=== PATIENT | female | born 1950 | race Caucasian/White ===

== ENCOUNTER 2017-06-14 06:33 | Day surgery (SDC) | payer OTHER, BC ==
[2017-06-07 17:21] VITALS: BMI 28.8
[2017-06-14] MEDS: TROPICAMIDE 1% OPHTH SOLN 15 ML BOTTLE ONE ×3 (07:10→07:20)
[2017-06-14] MEDS: PHENYLEPHRINE 2.5% OPHTH SOLN 15 ML BOTTLE ONE ×3 (07:10→07:20)
[2017-06-14] MEDS: CIPROFLOXACIN 0.3% EYE DROPS 5 ML BOTTLE ONE ×3 (07:10→07:20)
[2017-06-14] MEDS: CYCLOPENTOLATE 2% OPHTH SOLN 2 ML BOTTLE ONE ×3 (07:10→07:20)
[2017-06-14] MEDS ORDERED: NEO/POLYMYX B SULF/DEXAMETH OPHTHALMIC OINTMENT 3.5 GM ONE (07:11)
[2017-06-14] MEDS ORDERED: BSS (NA/CA/MG/K) BALANCED SALT SOLUTION OPHTH SOLN 15 ML BOTTLE ONE (07:11)
[2017-06-14] MEDS ORDERED: LIDOCAINE 1% P/F 10 MG/ML VIAL ONE (07:11)
[2017-06-14] MEDS ORDERED: TETRACAINE 0.5% OPHTH SOLN 2 ML BOTTLE ONE (07:11)
[2017-06-14] MEDS ORDERED: CARBACHOL 0.01% INTRA-OCULAR 1.5 ML VIAL ONE (07:12)
[2017-06-14] MEDS ORDERED: NEO/POLYMYX B SULF/DEXAMETH OPHTHALMIC 5ML BOTTLE ONE (07:12)
[2017-06-14] MEDS ORDERED: MIDAZOLAM HCL 2 MG/2 ML SINGLE DOSE VIAL ONE ×2 (07:49→07:56)
[2017-06-14 08:26] VITALS: TEMP 98
[2017-06-14 08:46] VITALS: BP 127/61; PULSE 62
--- NOTE | 2017-06-14 16:08 | OP ---
DATE OF OPERATION: 06/14/2017 OPERATIVE PROCEDURE: Lens Phacoemulsification with Posterior Chamber Intraocular Lens Placement Right Eye PREOPERATIVE DIAGNOSIS: Visually Significant Cataract of Right Eye POSTOPERATIVE DIAGNOSIS: Visually Significant Cataract of Right Eye SURGEON: Luis Grewal M.D. ANESTHESIA: MAC ANESTHESIOLOGIST: PROCEDURE: The patient was brought to the operating room and placed under monitored anesthesia care by Anesthesia. A drop of Tetracaine was then placed over the right eye. The patient was then prepped and draped in the usual sterile manner. A speculum was then placed over the right eye. The eye was then well irrigated with copious amounts of BSS (balanced salt solution). The operating microscope was then moved into position. A paracentesis was performed using a 15 degree blade. At this point 0.5 mL of 1% preservative-free lidocaine was injected into the anterior chamber. Amvisc plus was then injected into the anterior chamber. A clear corneal incision was then formed using a 2.2 mm keratome. A capsulorrhexis was then performed in a continuous circular fashion beginning with a cystotome, completed with an Utratas forceps. Hydrodissection was then performed using BSS on a cannula. The phaco probe was then introduced through the corneal wound and the cataract was removed using the phaco chop technique. Approximately 3 seconds of absolute phaco time was used. The remaining cortex was then removed using irrigation and aspiration with an I/A probe. The capsule was then filled with regular Amvisc and the capsule was noted to be intact. A previously selected foldable posterior chamber intraocular lens was then injected into the capsule through the corneal wound using a lens injector. It was then dialed into position using a Sinskey hook. The Amvisc was then removed using irrigation and aspiration. Miostat was then injected through the paracentesis to constrict the pupil. The paracentesis and corneal wound were then hydrated and noted to be water tight. A drop of Maxitrol was then placed over the eye. The speculum was removed and clear shield was taped over the eye. The patient tolerated the procedure well and there were no surgical complications. The patient was asked to follow up in my office the next day. LUIS GREWAL M.D. ROXANN/[id number]
== END 2017-06-14 08:50 | disposition home or self-care (01) ==
LOC: FASU 06:33
PROVIDERS: ATTEND Ophthalmology
PROC: 08RJ3JZ Replacement of Right Lens with Synthetic Substitute, Percutaneous Approach (ICD-10-PCS; principal; 2017-06-14 07:56)
DX: H26.8 Other specified cataract (principal)

== ENCOUNTER 2017-07-19 07:21 | Day surgery (SDC) | payer OTHER, BC ==
[2017-07-07 13:26] VITALS: BMI 28.8
[2017-07-19] MEDS ORDERED: BSS (NA/CA/MG/K) BALANCED SALT SOLUTION OPHTH SOLN 15 ML BOTTLE ONE (07:23)
[2017-07-19] MEDS ORDERED: CARBACHOL 0.01% INTRA-OCULAR 1.5 ML VIAL ONE (07:23)
[2017-07-19] MEDS ORDERED: LIDOCAINE 1% P/F 10 MG/ML VIAL ONE (07:23)
[2017-07-19] MEDS: CIPROFLOXACIN 0.3% EYE DROPS 5 ML BOTTLE ONE ×3 (07:50→08:00)
[2017-07-19] MEDS: CYCLOPENTOLATE 2% OPHTH SOLN 2 ML BOTTLE ONE ×3 (07:50→08:00)
[2017-07-19] MEDS: PHENYLEPHRINE 2.5% OPHTH SOLN 15 ML BOTTLE ONE ×3 (07:50→08:00)
[2017-07-19] MEDS: TROPICAMIDE 1% OPHTH SOLN 15 ML BOTTLE ONE ×3 (07:50→08:00)
[2017-07-19] MEDS ORDERED: MIDAZOLAM HCL 2 MG/2 ML SINGLE DOSE VIAL ONE (09:09)
[2017-07-19 09:59] VITALS: TEMP 97.7
[2017-07-19 10:17] VITALS: BP 121/63; PULSE 64
--- NOTE | 2017-07-19 13:30 | OP ---
DATE OF OPERATION: 07/19/2017 OPERATIVE PROCEDURE: Lens Phacoemulsification with Posterior Chamber Intraocular Lens Placement Left Eye PREOPERATIVE DIAGNOSIS: Visually Significant Cataract of Left Eye POSTOPERATIVE DIAGNOSIS: Visually Significant Cataract of Left Eye SURGEON: Luis Grewal M.D. ANESTHESIA: MAC ANESTHESIOLOGIST: PROCEDURE: The patient was brought to the operating room and placed under monitored anesthesia care by Anesthesia. A drop of Tetracaine was then placed over the left eye. The patient was then prepped and draped in the usual sterile manner. A speculum was then placed over the left eye. The eye was then well irrigated with copious amounts of BSS (balanced salt solution). The operating microscope was then moved into position. A paracentesis was performed using a 15 degree blade. At this point 0.5 mL of 1% preservative-free lidocaine was injected into the anterior chamber. Amvisc plus was then injected into the anterior chamber. A clear corneal incision was then formed using a 2.2 mm keratome. A capsulorrhexis was then performed in a continuous circular fashion beginning with a cystotome, completed with an Utratas forceps. Hydrodissection was then performed using BSS on a cannula. The phaco probe was then introduced through the corneal wound and the cataract was removed using the phaco chop technique. Approximately 3 seconds of absolute phaco time was used. The remaining cortex was then removed using irrigation and aspiration with an I/A probe. The capsule was then filled with regular Amvisc and the capsule was noted to be intact. A previously selected foldable posterior chamber intraocular lens was then injected into the capsule through the corneal wound using a lens injector. It was then dialed into position using a Sinskey hook. The Amvisc was then removed using irrigation and aspiration. Miostat was then injected through the paracentesis to constrict the pupil. The paracentesis and corneal wound were then hydrated and noted to be water tight. A drop of Maxitrol was then placed over the eye. The speculum was removed and clear shield was taped over the eye. The patient tolerated the procedure well and there were no surgical complications. The patient was asked to follow up in my office the next day. LUIS GREWAL M.D. ROXANN/[id number]
== END 2017-07-19 10:35 | disposition home or self-care (01) ==
LOC: FASU 07:21
PROVIDERS: ATTEND Ophthalmology
PROC: 08RK3JZ Replacement of Left Lens with Synthetic Substitute, Percutaneous Approach (ICD-10-PCS; principal; 2017-07-19 09:31)
DX: H26.8 Other specified cataract (principal)
CPT/HCPCS: 82962

== ENCOUNTER → 2018-12-28 | Day surgery (SDC) | payer OTHER, BC ==
[2018-12-27 16:22] VITALS: BMI 29.9
[2018-12-28 11:39] VITALS: TEMP 97.8
[2018-12-28 12:21] VITALS: BP 112/63; PULSE 59
--- NOTE | 2018-12-31 17:12 | PATH ---
Surgical Pathology Report Patient Name: ANAYA LUNA [facility]. Rec. #: [id number] /Age/Gender: 1950 (Age: 68) / F Account: [id number] Location: ASU-ENDOSCOPY Taken: 12/28/2018 Received: 12/28/2018 Reported: 12/31/2018 Physicians: Ronen Loo M.D. Specimen(s) Received A: RIGHT COLON POLYP B: BX SIGMOID ANASTOMOSIS C: BX RECTUM Clinical History Proctitis, abdominal pain, rule out Colitis Postoperative diagnosis: Diverticulosis, proctitis, right colon polyp, patent sigmoid anastomosis Final Diagnosis A. RIGHT COLON POLYP, BIOPSY: POLYPOID COLONIC MUCOSA WITH FOCAL SURFACE HYPERPLASTIC CHANGE AND REACTIVE LYMPHOID AGGREGATES IN THE LAMINA PROPRIA. B. SIGMOID ANASTOMOSIS, BIOPSY: FRAGMENTS OF COLONIC MUCOSA WITH FOCAL REACTIVE LYMPHOID AGGREGATE. C. PROCTITIS, BIOPSY: COLONIC MUCOSA WITH ACTIVE CHRONIC INFLAMMATION, ACUTE CRYPTITIS, ARCHITECTURAL DISTORTION, AND REACTIVE LYMPHOID FOLLICLES. SEE COMMENT. Comment: There is no dysplasia, granuloma, parasite or viral inclusions. The above histologic features are consistent with active chronic idiopathic inflammatory bowel disease. This may also be seen in chronic enteric infections, drug reactions, and parasitic infections. Clinical correlation recommended. Electronically Signed Stefania Snell M.D. Gross Description A. Received in formalin, labeled "biopsy right colon polyp" are 2 enamorado, irregular portions of soft tissue averaging 0.4 cm. in greatest dimension. The specimens are submitted in toto in one cassette. B. Received in formalin, labeled "biopsy sigmoid anastomosis" are 4 enamorado, irregular portions of soft tissue averaging 0.3 cm. in greatest dimension. The specimens are submitted in toto in one cassette. C. Received in formalin, labeled "biopsy proctitis" are 2 enamorado, irregular portions of soft tissue measuring 0.2 and 0.3 cm. in greatest dimension. The specimens are submitted in toto in one cassette. 12/28/201812/28/2018
== END | disposition home or self-care (01) ==
LOC: JASU-ENDO 08:57
PROVIDERS: ATTEND Internal Medicine Gastroenterology
PROC: 0DBP8ZX Excision of Rectum, Via Natural or Artificial Opening Endoscopic, Diagnostic (ICD-10-PCS; 2018-12-28)
PROC: 0DBK8ZX Excision of Ascending Colon, Via Natural or Artificial Opening Endoscopic, Diagnostic (ICD-10-PCS; principal; 2018-12-28 10:15)
DX: D12.2 Benign neoplasm of ascending colon (principal); K57.30 Diverticulosis of large intestine without perforation or abscess without bleeding; K64.8 Other hemorrhoids; K62.89 Other specified diseases of anus and rectum; E11.9 Type 2 diabetes mellitus without complications; K21.9 Gastro-esophageal reflux disease without esophagitis; E66.9 Obesity, unspecified; J44.9 Chronic obstructive pulmonary disease, unspecified; Z71.3 Dietary counseling and surveillance; Z79.84 Long term (current) use of oral hypoglycemic drugs; Z98.0 Intestinal bypass and anastomosis status
CPT/HCPCS: 88305-TC

== ENCOUNTER 2019-06-12 14:47 | Emergency (ER) | payer OTHER, BC ==
[2019-06-12 15:00] VITALS: BP 145/66; PULSE 56; TEMP 97.5; BMI 29.1
--- NOTE | 2019-06-12 15:00 | PDOC ---
Rapid Medical Evaluation Time Seen by Provider: 06/12/19 14:58 Medical Evaluation: Allergies Allergy/AdvReac Type Severity Reaction Status Date / Time No Known Drug Allergies Allergy Verified 07/07/17 13:36 06/12/19 14:58 Patient c/o: teeth psin to left side and now left ear, mild headache, no fever or dizziness Patient on brief exam: vss, no acute distress Patient ordered for: none Patient to proceed to the ED Discharge Disposition - Diagnosis Pain, dental - Discharge Dispostion Disposition: HOME Condition at time of disposition: Good - Referrals - Patient Instructions Additional Instructions: Your exam did not reveal a source for your pain but given dental sensitivity and pain to the roof of your mouth you should follow-up with your dentist this week for further evaluation In the meantime take Motrin or Tylenol as needed - Post Discharge Activity
--- NOTE | 2019-06-12 18:13 | PDOC ---
History of Present Illness - General Chief Complaint: Pain Stated Complaint: SINUS INFECTION Time Seen by Provider: 06/12/19 14:58 History Source: Patient - History of Present Illness Timing/Duration: other Past History - Past Medical History Allergies/Adverse Reactions: Allergies Allergy/AdvReac Type Severity Reaction Status Date / Time No Known Drug Allergies Allergy Verified 06/12/19 15:01 Home Medications: Ambulatory Orders Fluoxetine HCl [Prozac -] 10 mg PO BID #0 capsule 09/24/12 Montelukast Na [Singulair -] 10 mg PO DAILY #0 tablet 09/24/12 Sotalol HCl [Sotalol] 40 mg PO BID #0 tablet 09/24/12 Ezetimibe [Zetia -] 10 mg PO ASDIR 01/22/15 Simvastatin [Zocor -] 40 mg PO HS 01/22/15 Ascorbic Acid [Vitamin C] 500 mg PO DAILY 03/31/16 Cholecalciferol (Vitamin D3) [Vitamin D -] 2,000 unit PO DAILY 03/31/16 Mesalamine [Apriso] 4 each PO DAILY 03/31/16 Multivitamin with Minerals [Icaps Plus] 1 each PO DAILY 03/31/16 metFORMIN HCL [Metformin HCl] 500 mg PO DAILY 03/31/16 Ranitidine [Zantac -] 150 mg PO BID #180 tablet 04/01/16 Anemia: No Asthma: No Cancer: Yes (RT LOBULAR CARCINOMA) Cardiac Disorders: Yes (MVP, HX A-FIB & SVT) CVA: No COPD: No (CHRONIC BRONCHITIS) CHF: No Dementia: No Diabetes: Yes (NIDDM) GI Disorders: Yes (COLITIS, GERD,HYPERPLASTIC POLYP, ANAL FISSURE,) Disorders: No HTN: No Hypercholesterolemia: Yes Liver Disease: No Seizures: No Thyroid Disease: No - Surgical History Abdominal Surgery: No Appendectomy: Yes Cardiac Surgery: Yes (- 1994) Cholecystectomy: Yes (LAPAROSCOPIC) Lung Surgery: No Neurologic Surgery: No Orthopedic Surgery: No - Psycho Social/Smoking Cessation Hx Smoking Status: Yes Smoking History: Never smoked Have you smoked in the past 12 months: No Number of Cigarettes Smoked Daily: 0 If you are a former smoker, when did you quit?: 30YRS AGO 'Breaking Loose' booklet given: 11/04/11 Hx Alcohol Use: Yes (RARE) Drug/Substance Use Hx: No Substance Use Type: Alcohol Hx Substance Use Treatment: No Review of Systems - Review of Systems Constitutional: No: Chills, Fever *Physical Exam - Vital Signs Last Vital Signs Temp Pulse Resp BP Pulse Ox 97.5 F L 56 L 18 145/66 100 06/12/19 14:57 06/12/19 14:57 06/12/19 14:57 06/12/19 14:57 06/12/19 14:57 - Physical Exam General Appearance: Yes: Appropriately Dressed. No: Apparent Distress HEENT: positive: Normal ENT Inspection, Normal Voice, TMs Normal, Pharynx Normal , Other (no dental ttp or swelling). negative: Scleral Icterus (R), Scleral Icterus (L), Sinus Tenderness Neck: positive: Supple. negative: Lymphadenopathy (R), Lymphadenopathy (L) Respiratory/Chest: negative: Respiratory Distress Integumentary: positive: Dry, Warm Neurologic: positive: Fully Oriented, Alert, Normal Mood/Affect Medical Decision Making - Medical Decision Making 06/12/19 15:35 68-year-old female, no significant history, here with pain to the roof of her mouth and L upper dental sensitivity x several days. No recent dental procedure and no fever, facial swelling, rhinorrhea, facial pain, headache fever or chills. Patient states she was already on [employer] doing something else and decided to come down to the ER to get checked out see exam Dental pain No e/o infection on exam Dc to f/u with dental this week Declines pain meds Discharge - Discharge Information Problems reviewed: Yes Clinical Impression/Diagnosis: Pain, dental Condition: Good Disposition: HOME - Follow up/Referral - Patient Discharge Instructions Additional Instructions: Your exam did not reveal a source for your pain but given dental sensitivity and pain to the roof of your mouth you should follow-up with your dentist this week for further evaluation In the meantime take Motrin or Tylenol as needed - Post Discharge Activity
== END 2019-06-12 15:41 | disposition home or self-care (01) ==
LOC: JERFT 14:47
DX: K08.89 Other specified disorders of teeth and supporting structures (principal); Z87.891 Personal history of nicotine dependence; J42 Unspecified chronic bronchitis; Z85.118 Personal history of other malignant neoplasm of bronchus and lung; E11.9 Type 2 diabetes mellitus without complications; K21.9 Gastro-esophageal reflux disease without esophagitis; K92.9 Disease of digestive system, unspecified; Z79.84 Long term (current) use of oral hypoglycemic drugs
CPT/HCPCS: 99281-25

== ENCOUNTER 2019-07-14 13:25 | Emergency (ER) | payer OTHER, BC ==
[2019-07-14 13:30] VITALS: BP 130/65; PULSE 79; TEMP 97.3; BMI 29.1
--- NOTE | 2019-07-14 14:00 | PDOC ---
History of Present Illness - General Chief Complaint: Redness To Affected Area Stated Complaint: RIGHT 2ND FINGER REDNESS, SWELLING Time Seen by Provider: 07/14/19 13:39 History Source: Patient Exam Limitations: No Limitations - History of Present Illness Initial Comments: 07/14/19 14:03 68y F hx of DM, afib, gerd, hl, presents with Right finger swelling. Patient states that she has been having finger swelling for several days she went to her primary care doctor who referred her to orthopedics. She was seen by dr. Mancia last week, had an xray and started on augmentin. The pt notse that her redness on the proximal digit had improved but the distal end appeared alittle darker in color. The pt denies anycurrent fever/chills, no tracking, recent injuries. she states she had a nodule on her dip that she would sometimes bump into but she doesnt recall any episodes of acut etrauma. pt came today to have blood work for evaluation of her finger swelling. pt has a follow up appointment with dr. mancia on monday scheduled. ROS: Constitutional - no reported Fever, Chills, HEENT: no reported vision changes, sore throat Respiratory: no reported cough, sob, hemoptysis Cardiac: no reported chest pain, palpitations, light headedness, leg swelling Abd/GI: no reported abd pain, nausea, vomiting, blood per rectum, melena, diarrhea : no reported dysuria, frequency, discharge Musculskelatal - +R finger swelling redness and pain no reported back pain skin - no reported bruising, erythema, rash neurological: no reported headache, numbness, focal weakness, tingling, ataxia, hematologic: no reported easy bruising, easy bleeding Exam: GENERAL: The patient is awake, alert, and fully oriented, Nontoxic - in no acute distress. HEAD: Normocephalic, atraumatic. EYES: extraocular movements intact, sclera anicteric, conjunctiva clear. ENT: Normal voice, Moist mucous membranes. NECK: Normal range of motion, supple LUNGS: Breath sounds equal, clear to auscultation bilaterally. No wheezes, no rhonchi, no rales. HEART: Regular rate and rhythm, normal S1 and S2 without murmur, rub or gallop. ABDOMEN: Soft, nontender, No guarding, no rebound. No CVA tenderness EXTREMITIES:R 2nd digit edema/induration without significant warmth, limited ORM due to pain. NEUROLOGICAL: No facial assymetry, Normal speech, PSYCH: Normal mood, normal affect. SKIN: Warm, Dry, normal turgor, possible cullulitis vs nonspecific inflammation - no significant warmth to suggest infectious cause (or may be due to improvement with abx) will ck basic labs, esr/crp and blood cx pt had xrays performed 3 days ago, will defer imaging. Past History - Past Medical History Allergies/Adverse Reactions: Allergies Allergy/AdvReac Type Severity Reaction Status Date / Time No Known Drug Allergies Allergy Verified 07/14/19 13:27 Home Medications: Ambulatory Orders Fluoxetine HCl [Prozac -] 10 mg PO BID #0 capsule 09/24/12 Montelukast Na [Singulair -] 10 mg PO DAILY #0 tablet 09/24/12 Sotalol HCl [Sotalol] 40 mg PO BID #0 tablet 09/24/12 Ezetimibe [Zetia -] 10 mg PO ASDIR 01/22/15 Simvastatin [Zocor -] 40 mg PO ASDIR 01/22/15 Ascorbic Acid [Vitamin C] 500 mg PO DAILY 03/31/16 Cholecalciferol (Vitamin D3) [Vitamin D -] 2,000 unit PO DAILY 03/31/16 Mesalamine [Apriso] 4 each PO DAILY 03/31/16 Multivitamin with Minerals [Icaps Plus] 1 each PO DAILY 03/31/16 metFORMIN HCL [Metformin HCl] 500 mg PO DAILY 03/31/16 Ranitidine [Zantac -] 150 mg PO BID #180 tablet 04/01/16 Amoxicillin/Potassium Clav [Augmentin 875-125 Tablet] 1 each PO BID 07/14/19 Anemia: No Asthma: No Cancer: Yes (RT LOBULAR CARCINOMA) Cardiac Disorders: Yes (MVP, HX A-FIB & SVT) CVA: No COPD: (CHRONIC BRONCHITIS) CHF: No Dementia: No Diabetes: Yes (NIDDM) GI Disorders: Yes (COLITIS, GERD,HYPERPLASTIC POLYP, ANAL FISSURE,) Disorders: No HTN: No Hypercholesterolemia: Yes Liver Disease: No Seizures: No Thyroid Disease: No - Surgical History Abdominal Surgery: No Appendectomy: Yes Cardiac Surgery: Yes (- 1994) Cholecystectomy: Yes (LAPAROSCOPIC) Lung Surgery: No Neurologic Surgery: No Orthopedic Surgery: No - Psycho Social/Smoking Cessation Hx Smoking Status: Yes Smoking History: Never smoked Have you smoked in the past 12 months: No Number of Cigarettes Smoked Daily: 0 If you are a former smoker, when did you quit?: 30YRS AGO Information on smoking cessation initiated: No 'Breaking Loose' booklet given: 11/04/11 Hx Alcohol Use: Yes (RARE) Drug/Substance Use Hx: No Substance Use Type: Alcohol Hx Substance Use Treatment: No *Physical Exam - Vital Signs Last Vital Signs Temp Pulse Resp BP Pulse Ox 97.3 F L 79 18 130/65 98 07/14/19 13:25 07/14/19 13:25 07/14/19 13:25 07/14/19 13:25 07/14/19 13:25 ED Treatment Course - LABORATORY CBC & Chemistry Diagram: 07/14/19 14:23 07/14/19 14:23 Medical Decision Making - Medical Decision Making 07/14/19 15:56 Patient's blood work was reviewed. noted for mild leukocytosis, but may be due to hemoconcentration. ESR/CRP pending. will dc the pt to fu with dr mancia and continue her course of abx return precautions were dsicussed I discussed the physical exam findings, ancillary test results and final diagnoses with the patient. I answered all of the patient's questions. The patient was satisfied with the care received and felt comfortable with the discharge plan and treatment plan. The patient will call their primary care physician within 24 hours to arrange follow-up and will return to the Emergency Department with any new, persistent or worsening symptoms. Discharge - Discharge Information Problems reviewed: Yes Clinical Impression/Diagnosis: Swollen finger Condition: Improved Disposition: HOME - Admission No - Follow up/Referral Referrals: Fransisco Power MD [Primary Care Provider] - Gus Mancia MD [Staff Physician] - - Patient Discharge Instructions Additional Instructions: Return to the emergency department immediately with ANY new, persistent or worsening symptoms including worsening swelling, fever, warmth, or any other concerns. Your ESR/CRP is pending. Please have dr. Mancia follow up when you see him on monday. You MUST call and follow up with your Dr. Mancia as schedule on for further evaluation of your symptoms. Results were discussed with you. Please make sure your doctor reviews the results of your emergency evaluation. Your Emergency Department visit is not complete without a follow up with your doctor. Print Language: ROMANIAN - Post Discharge Activity
[2019-07-14 14:39] LABS: BASO % 0.8 % (0-2.0); EOS % 1.3 % (0-4.5); HEMATOCRIT 46.9 % (32.4-45.2); HEMOGLOBIN 15.4 GM/dl (10.7-15.3); LYMPH % 23.5 % (8-40); MCH 30.4 pg (25.7-33.7); MCHC 32.8 g/dl (32.0-36.0); MEAN CELL VOLUME 92.6 fl (80-96); MEAN PLT VOLUME 10.8 fl (7.5-11.1); MONO % 5.6 % (3.8-10.2); NEUT % 68.8 % (42.8-82.8); PLATELET COUNT 202 K/MM3 (134-434); RBC 5.06 M/mm3 (3.60-5.2); RDW 12.3 % (11.6-15.6); WHITE BLOOD COUNT 11.3 K/mm3 (4.0-10.8)
[2019-07-14 14:50] LABS: BILIRUBIN,TOTAL 0.7 mg/dl (0.2-1); CALCIUM 9.3 mg/dl (8.5-10); CREATININE 0.6 mg/dl (0.55-1.3); POTASSIUM 4.6 mmol/L (3.5-5.1); TOT PROT 7.3 g/dl (6.4-8.2)
== END 2019-07-14 16:00 | disposition home or self-care (01) ==
LOC: FER 13:25
DX: M79.89 Other specified soft tissue disorders (principal); Z87.891 Personal history of nicotine dependence; J42 Unspecified chronic bronchitis; E78.00 Pure hypercholesterolemia, unspecified; K21.9 Gastro-esophageal reflux disease without esophagitis; E11.9 Type 2 diabetes mellitus without complications
CPT/HCPCS: 36415; 80053; 85025; 85651; 86140; 87040; 99283-25

== ENCOUNTER 2019-07-17 12:22 | Day surgery (SDC) | payer OTHER, BC ==
[2019-07-16 15:55] VITALS: BMI 29.1
[2019-07-17 13:03] VITALS: TEMP 97.7
[2019-07-17] MEDS ORDERED: DEXAMETHASONE SOD PHOSPHATE 4 MG/1 ML VIAL ONE (14:13)
[2019-07-17] MEDS ORDERED: ONDANSETRON 4 MG/2 ML VIAL ONE ×2 (14:13→15:37)
[2019-07-17] MEDS ORDERED: MIDAZOLAM HCL 2 MG/2 ML SINGLE DOSE VIAL ONE (14:13)
[2019-07-17] MEDS ORDERED: fentaNYL CITRATE 250 MCG/5 ML VIAL ONE (14:13)
[2019-07-17] MEDS ORDERED: PROPOFOL 20 ML ONE (14:13)
[2019-07-17] MEDS ORDERED: AMPICILLIN NA/SULBACTAM NA 1.5 GM VIAL ONE (15:04)
[2019-07-17] MEDS ORDERED: KETOROLAC TROMETHAMINE 30 MG/1 ML VIAL ONE (15:11)
[2019-07-17] MEDS ORDERED: BUPIVACAINE HCL 0.25% 125 MG/50 ML VIAL ONE (15:16)
[2019-07-17] MEDS ORDERED: ONDANSETRON 4 MG/2 ML VIAL IVPUSH PRN (15:50)
[2019-07-17] MEDS ORDERED: oxyCODONE HCL 5 MG TABLET PO PRN ×2 (15:50)
[2019-07-17] MEDS ORDERED: LACTATED RINGERS SOLUTION 1,000 ML IV SCH (16:00)
--- NOTE | 2019-07-17 16:17 | OP ---
DATE OF OPERATION: 07/17/2019 PREOPERATIVE DIAGNOSIS: Right index finger infection. POSTOPERATIVE DIAGNOSIS: Right index finger infection, likely distal interphalangeal joint septic arthritis. SURGERY: Right index finger incision and drainage with capsulotomy and irrigation and debridement of distal interphalangeal joint with bone culture and soft tissue cultures. SURGEON: Gus Mancia MD CONTINUITY CLERK: GRANT Montelongo ANESTHESIA: General. COMPLICATIONS: None. ESTIMATED BLOOD LOSS: Minimal. INDICATIONS FOR PROCEDURE: The patient is a 68-year-old female with above finding indicated for operative treatment. Risks, benefits, alternatives were discussed with the patient at length. Proper informed consent was obtained. PROCEDURE: After proper identification of patient and correct operative site, patient was brought to the operative room, placed supine on operative table with prominences well padded. General anesthesia was given. Right upper extremity was prepped and draped in the usual sterile fashion. Well-padded tourniquet was placed with a sterile prep. Arm was elevated, and the tourniquet was inflated. No Esmarch bandage was used. The patient's epidermis in the area, which was desquamating, was elevated, and pus was found underneath the epidermis. This was cultured. Once the skin was removed, there was a hole just on the radial dorsal aspect of the distal interphalangeal joint, which went down to the joint. This had a small amount of pus and necrotic tissue coming out of it. This was debrided. A mid axial incision was then made just adjacent to this and taken through the subcutaneous tissues down to the level of the distal interphalangeal joint. Further cultures were taken. Area was thoroughly irrigated and debrided. No further pus was noted. The area was copiously irrigated with saline. Wound was sterilely dressed after loosely approximating with 3-0 nylon suture. The patient was reversed from anesthesia and brought to recovery in stable condition. She tolerated procedure well. Arm was placed into a splint and elevated. Intravenous antibiotics were given after taking cultures. Further treatment with antibiotics will continue, and ultimate antibiotic treatment will be determined by culture results. Briana [id number]
[2019-07-17] MEDS ORDERED: hydrALAZINE HCL 20 MG/ML VIAL ONE (16:36)
[2019-07-17] MEDS ORDERED: hydrALAZINE HCL 20 MG/ML VIAL IVPUSH ONE (16:38)
[2019-07-17 17:54] VITALS: PULSE 71
[2019-07-17 18:02] VITALS: BP 154/77
== END 2019-07-17 17:55 | disposition home or self-care (01) ==
LOC: FASU 12:22
PROVIDERS: ATTEND Orthopaedic Surgery Hand Surgery
PROC: 0R9X0ZZ Drainage of Left Finger Phalangeal Joint, Open Approach (ICD-10-PCS; 2019-07-17)
PROC: 0HBFXZZ Excision of Right Hand Skin, External Approach (ICD-10-PCS; 2019-07-17)
PROC: 0RNW0ZZ Release Right Finger Phalangeal Joint, Open Approach (ICD-10-PCS; principal; 2019-07-17 15:06)
DX: L08.89 Other specified local infections of the skin and subcutaneous tissue (principal)
CPT/HCPCS: 82962; 87070; 87205; 94760

== ENCOUNTER 2020-06-12 09:49 | Emergency (ER) | payer OTHER, BC | END 2020-06-12 10:12 | disposition home or self-care (01) | LOC: JVIRT 09:49 | DX: R07.0 Pain in throat (principal); Z11.59 Encounter for screening for other viral diseases | CPT/HCPCS: C9803; Q3014-GT; U0003 ==

== ENCOUNTER 2021-08-03 11:08 | Emergency (ER) | payer OTHER, BC ==
[2021-08-03 11:18] VITALS: BMI 30.7
[2021-08-03] MEDS ORDERED: SODIUM CHLORIDE 0.9% 500 ML INFUS.BAG IV ONE (11:43)
[2021-08-03] MEDS ORDERED: ACETAMINOPHEN 1000 MG/100 ML BAG IVPB ONE (11:44)
[2021-08-03 12:17] LABS: BILIRUBIN,TOTAL 0.6 mg/dl (0.2-1); CALCIUM 9.5 mg/dl (8.5-10); CREATININE 0.8 mg/dl (0.55-1.3); TOT PROT 7.3 g/dl (6.4-8.2)
[2021-08-03 12:34] LABS: HEMATOCRIT 41.3 % (32.4-45.2); HEMOGLOBIN 13.8 GM/dL (10.7-15.3); MCH 30.1 pg (25.7-33.7); MCHC 33.5 g/dl (32.0-36.0); MEAN PLT VOLUME 9.5 fl (7.5-11.1); PLATELET COUNT 246 10^3/uL (134-434); RBC 4.59 M/mm3 (3.60-5.2); RDW 13.1 % (11.6-15.6); WHITE BLOOD COUNT 7.3 K/mm3 (4.0-10.0)
[2021-08-03] MEDS ORDERED: ACETAMINOPHEN INJECTION 100 ML IVPB ONE (13:06)
[2021-08-03 13:20] VITALS: BP 142/78; PULSE 62; TEMP 97.6
== END 2021-08-03 13:55 | disposition home or self-care (01) ==
LOC: FER 11:08
PROC: 3E033GC Introduction of Other Therapeutic Substance into Peripheral Vein, Percutaneous Approach (ICD-10-PCS; principal; 2021-08-03)
DX: R10.32 Left lower quadrant pain (principal)
CPT/HCPCS: 36415; 74177-TC; 80053; 81003; 82550; 83690; 84484; 85027; 87086; 87186; 93005; 99285-25; J0131; Q9967